=== PATIENT | male | born 1965 ===

== ENCOUNTER 2022-06-04 12:23 | Emergency (ER) | payer OTHER ==
[~2022-06-04] VITALS: Ht 177.8 cm; Wt 72.6 kg
== END 2022-06-04 14:28 | disposition home or self-care (01) ==
LOC: ER 12:23
DX: S61.242A Puncture wound with foreign body of right middle finger without damage to nail, initial encounter (principal); W26.0XXA Contact with knife, initial encounter; Y93.9 Activity, unspecified; Y92.9 Unspecified place or not applicable